=== PATIENT | male | born 1985 | race Caucasian/White ===

== ENCOUNTER 2017-11-21 17:42 | Emergency (ER) | payer OTHER ==
[2017-11-21] MEDS ORDERED: HYDROmorphone 2 MG/ML VIAL IM STA (18:12)
[2017-11-21] MEDS ORDERED: KETOROLAC 60 MG/2 ML VIAL IM STA (18:12)
--- NOTE | 2017-11-21 18:14 | ED Physician Documentation ---
PD HPI BACK INJURY - Stated complaint Stated Complaint: BACK INJURY - History obtained from History obtained from: Patient - History of Present Illness Location: Lower (He was doing lifts at the gym earlier and felt a pull in his right low back and now is pain. There is no fall. No weakness, numbness, tingling, saddle anesthesia, or fever.) Review of Systems Constitutional: reports: Reviewed and negative Cardiac: reports: Reviewed and negative Respiratory: reports: Reviewed and negative PD PAST MEDICAL HISTORY - Past Medical History Past Medical History: No - Past Surgical History Past Surgical History: Yes - Present Medications Home Medications: Ambulatory Orders Medication Instructions Recorded Confirmed Cyclobenzaprine [Flexeril] 10 mg PO TID PRN #20 tablet 11/21/17 HYDROcod/ACETAM 5/325 [[place]acy 5/325] 1 - 2 ea PO Q6H PRN #15 tablet 11/21/17 Ibuprofen [Motrin] 800 mg PO Q8H PRN #30 tablet 11/21/17 - Allergies Allergies/Adverse Reactions: Allergies Allergy/AdvReac Type Severity Reaction Status Date / Time No Known Drug Allergies Allergy Verified 11/21/17 18:06 - Social History Does the pt smoke?: Yes Smoking Status: Heavy tobacco smoker Does the pt drink ETOH?: Yes Does the pt have substance abuse?: No - Immunizations Immunizations are current?: Yes - POLST Patient has POLST: No PD ED PE NORMAL - Vitals Vital signs reviewed: Yes - General General: Alert and oriented X 3, Other (Comfortable at rest, winces with motion) - Abdomen Abdomen: Soft, Non tender - Back Back: No spinal TTP, Other (Tender to the right paralumbar musculature, The patient has equal and normal Achilles and patellar reflexes bilaterally. Normal sensation in all areas of the legs. Patient denies saddle anesthesia. Normal strength in flexion-extension at the ankles, knees, and flexion of the hips.) - Neuro Neuro: Alert and oriented X 3, Normal speech Results - Vitals Vitals: Vital Signs - 24 hr 11/21/17 17:54 Temperature 36.7 C Heart Rate 89 Respiratory 18 Rate Blood Pressure 126/81 H O2 Saturation 100 Oxygen O2 Source Room air Departure - Departure Disposition: 01 Home, Self Care Clinical Impression: Back pain Qualifiers: Back pain location: low back pain Chronicity: acute Back pain laterality: right Sciatica presence: without sciatica Qualified Code(s): M54.5 - Low back pain Condition: Good Record reviewed to determine appropriate education?: Yes Instructions: ED Low Back Pain Injury Prescriptions: Cyclobenzaprine [Flexeril] 10 mg PO TID PRN #20 tablet PRN Reason: Pain HYDROcod/ACETAM 5/325 [Tracy 5/325] 1 - 2 ea PO Q6H PRN #15 tablet PRN Reason: Pain Ibuprofen [Motrin] 800 mg PO Q8H PRN #30 tablet PRN Reason: PAIN &/OR FEVER Comments: Call your doctor to arrange a follow-up appointment, make the next available appointment. In the interim, return anytime if worse or if new symptoms develop. Your blood pressure was elevated today on check into the emergency department. This does not mean that you have hypertension, it is a common phenomenon to come to the emergency department and have elevated blood pressure. I recommend that you see your primary care physician within the week to have it rechecked when you are feeling better. Forms: Activity restrictions
[2017-11-21 18:55] VITALS: BP 124/74
== END 2017-11-21 18:54 | disposition home or self-care (01) ==
LOC: ED 17:42
DX: M54.5 Low back pain (principal); R03.0 Elevated blood-pressure reading, without diagnosis of hypertension; F17.200 Nicotine dependence, unspecified, uncomplicated
CPT/HCPCS: 96372; 99283; J1170

== ENCOUNTER 2019-01-16 12:17 | Emergency (ER) | payer OTHER ==
[2019-01-16 12:27] VITALS: BP 152/102
--- NOTE | 2019-01-16 12:31 | ED Physician Documentation ---
PD HPI UPPER EXT INJURY - Stated complaint Stated Complaint: LT MIDDLR FINGER LAC - Chief complaint Chief Complaint: Laceration - History obtained from History obtained from: Patient - History of Present Illness Location: Left, Finger (middle finger struck against part of his car when a tool gave loose and he struck his finger forcefully.) Type of injury: Blunt / blow (He was using a tool that slipped loose and he struck his finger against a piece of metal on the car he was working on. He had a laceration that bled briefly. He cleansed it well. He is concerned he is hav ing low bit of redness and a feeling of stiffness of it developed today. He is worried about infection.) Timing - onset: Yesterday Timing - details: Abrupt onset Associated symptoms: Swelling, Discolored (some redness). No: Weakness, Numbness Similar symptoms before: Has not had sx before Review of Systems Constitutional: denies: Fever, Chills Neurologic: denies: Focal weakness, Numbness PD PAST MEDICAL HISTORY - Past Medical History Cardiovascular: None Respiratory: None - Past Surgical History Past Surgical History: Yes - Present Medications Home Medications: Ambulatory Orders Medication Instructions Recorded Confirmed Cyclobenzaprine [Flexeril] 10 mg PO TID PRN #20 tablet 11/21/17 Ibuprofen [Motrin] 800 mg PO Q8H PRN #30 tablet 11/21/17 RX: HYDROcod/ACETAM 5/325 [[place] 1 - 2 ea PO Q6H PRN #15 tablet 11/21/17 5/325] RX: Ibuprofen [Ibu] 800 mg PO TID #30 tablet 01/16/19 RX: Mupirocin 1 applic TP TID #15 g 01/16/19 Sulfamethox/Trimeth 800/160 1 each PO BID #14 tablet 01/16/19 [Bactrim Ds 800/160] - Allergies Allergies/Adverse Reactions: Allergies Allergy/AdvReac Type Severity Reaction Status Date / Time No Known Drug Allergies Allergy Verified 01/16/19 12:24 - Social History Does the pt smoke?: Yes Smoking Status: Heavy tobacco smoker Does the pt drink ETOH?: Yes Does the pt have substance abuse?: No - Immunizations Immunizations are current?: Yes - POLST Patient has POLST: No PD ED PE NORMAL - Vitals Vital signs reviewed: Yes - General General: Alert and oriented X 3, No acute distress, Well developed/nourished - Derm Derm: Normal color, Warm and dry - Neuro Neuro: Alert and oriented X 3 Results - Vitals Vitals: Vital Signs - 24 hr 01/16/19 12:20 Temperature 36.5 C Heart Rate 79 Respiratory 15 Rate Blood Pressure 152/102 H O2 Saturation 98 Oxygen O2 Source Room air - Rads (name of study) finger xray Radiology: Prelim report reviewed (no fractures), See rad report PD MEDICAL DECISION MAKING - ED course Complexity details: reviewed results (no fracture), considered differential (He had the injury yesterday and is concerned about stiffening feeling and decreased range of motion today. There is some slight redness. He is concerned about infection. This may be just inflammatory but I would certainly add antibiotics for concordance with his worries.), d/w patient Departure - Departure Disposition: 01 Home, Self Care Clinical Impression: Finger laceration Qualifiers: Encounter type: initial encounter Finger: middle finger Damage to nail status: without damage Foreign body presence: without foreign body Laterality: left Qualified Code(s): S61.213A - Laceration without foreign body of left middle finger without damage to nail, initial encounter Condition: Stable Record reviewed to determine appropriate education?: Yes Instructions: ED Laceration Hand Follow-Up: LAUREN HODGES DO [Primary Care Provider] - Prescriptions: RX: Ibuprofen [Ibu] 800 mg PO TID #30 tablet RX: Mupirocin 1 applic TP TID #15 g Sulfamethox/Trimeth 800/160 [Bactrim Ds 800/160] 1 each PO BID #14 tablet Comments: Cleanse wound with soap and water 2-3 times a day and apply a little bit of mupirocin antibiotic ointment. Do not have it overly wet or overly dry. Use Bactrim antibiotic twice daily for a week to reduce her clear infection. Ibuprofen 3 times a day add Tylenol if needed. Recheck if worsening signs of infection. Discharge Date/Time: 01/16/19 13:27
[2019-01-16] MEDS ORDERED: IBUPROFEN 800 MG TABLET PO STA (12:47)
[2019-01-16] MEDS ORDERED: SULFAMETH/TRIMETH DS 800/160 MG TABLET PO STA (12:48)
[2019-01-16] MEDS ORDERED: ACETAMINOPHEN 325 MG TABLET PO STA (12:48)
--- NOTE | 2019-01-16 14:50 | XRAY Report ---
Reason: left middle finger injury yesterday Procedure Date: 01/16/2019 Accession Number: [id number] / [id number] Procedure: XR - Finger(s) LT CPT Code: FULL RESULT: EXAM: LEFT THIRD DIGIT RADIOGRAPHY EXAM DATE: 01/16/2019 12:50 PM. CLINICAL HISTORY: Left middle finger injury yesterday. Puncture. Soft tissue swelling COMPARISON: None. TECHNIQUE: 4 views. FINDINGS: Bones: Normal. No fracture or bone lesion. Joints: Normal. No subluxations. Soft Tissues: Soft tissue swelling. IMPRESSION: Normal digit radiography. [facility]
== END 2019-01-16 13:27 | disposition home or self-care (01) ==
LOC: ED 12:17
DX: S61.213A Laceration without foreign body of left middle finger without damage to nail, initial encounter (principal); F17.200 Nicotine dependence, unspecified, uncomplicated; W26.8XXA Contact with other sharp object(s), not elsewhere classified, initial encounter; W22.8XXA Striking against or struck by other objects, initial encounter; Y93.89 Activity, other specified
CPT/HCPCS: 73140; 99283; A9270

== ENCOUNTER 2021-03-03 14:46 | Outpatient (CLI) | payer OTHER ==
[2021-03-03 15:35] VITALS: BP 133/81
--- NOTE | 2021-03-03 15:35 | SLEEP CARE CONSULTATION ---
Information from patient questionnaire entered by Idalia Diaz. I have reviewed and concur with the information entered by Idalia Diaz. This document represents the service I personally performed and the decisions made by me, Hafsa Venegas ARNP. History of Present Illness Service Date and Time: 03/03/2021 1446 Reason for Visit: New patient Chief Complaint: reports: Unrefreshed sleep, Snoring, Observed pauses in breathing, Frequent awakenings at night Date of Onset: 10 years Usual bedtime: 8:30 - 9:30 pm Time it takes to fall asleep: 30-45 minutes Snores at night: Yes Observed to quit breathing while asleep: Yes Sleeps alone due to snoring: No (; daughter did leave tent due to snoring when camping) Number of times waking at night: 4-6 Reasons for waking at night: reports: Snoring, Bathroom, Other (unknown reasons). denies: Choking, Gasping for air Toss, Turn, or Twitch while sleeping: Yes Recalls having dreams: No Usually gets out of bed at: 4-6 am Feels refreshed in the morning: No Morning headache: No Sleepy or fatigued during the day: Yes Ever fallen asleep while driving: Yes (drowsy driving but no accidents) Takes day naps: No Dreams during day naps: No Prior sleep studies: No Additional HPI information: I had the pleasure of seeing BOLA LIVINGSTON today regarding the possibility of him having a sleep disorder. His current complaints are frequent night awakenings, observed pauses in breathing, snoring and unrefreshed sleep. He states for a very long time he has been told he snores like he is "sawing logs" and that he stops breathing when sleeping. He has been told that he gasps in his sleep but this has not woken him up. He is always tired throughout the day. He does not wake up feeling rested after 6-7 hours of sleep. He states he has had a lot of friends encouraging him to get a sleep study because of his loud snoring and stopping breathing when he sleeps. One-time he has a friend who is on a Pap machine who let him try it when he was taking a nap and he states it was a good experience. - Parasomnia Symptoms Ever been unable to move upon waking from sleep: No Walks in sleep: No Talks in sleep: Yes Ever acted out dreams in sleep: No Ever felt weak in the knees when startled or emotional: No Bothered by creepy, crawly, restless sensations in legs: No Problems with memory or concentration: Yes (mainly memory issues) Subjective Initial [place] Sleepiness Scale score: 14 (in 2020) Social History The patient's occupation is a Active . Patient is and lives in [place]. Have you smoked in the past 12 months: No Years of smokin (and a half) Quit date: 2006 Alcohol use: Yes Alcohol amount and frequency: 6 pack per week Caffeine use: Yes Caffeine amount and frequency: 2 cups per day Family History Family history of sleep disordered breathing: Yes Family Hx Sleep Apnea: Father: Snoring, Sleep apnea - Untreated, Grandparent: Snoring Allergies and Home Medications Drug allergies reviewed: Yes (NKDA) Home medication list reviewed: Yes Allergy and home medication list: / pill of melatonin 10 mg pill to help with sleep Review of Systems Cardiovascular: denies: high blood pressure Gastrointestinal: reports: heartburn Neurological: denies: headaches Psychiatric: denies: anxiety, depression, mood disorder Ear/Nose/Throat: reports: wisdom teeth removed. denies: sinus problems, dry mouth/throat, injury to nose, tonsillectomy Immunologic: denies: allergies to food or environment Physical Exam Blood Pressure: 133/81 Cuff size: wrist Heart Rate: 82 O2 Saturation: 96 Height: 6 ft Weight: 208 lb Body Mass Index: 28.2 BMI Classification: Overweight Neck circumference: 15 (inches) Nostrils: patent to airflow Mouth and throat: narrow oropharynx Soft palate: long Hard palate: normal Uvula: normal Uvula visualization: 100% Mallampati Class I Tongue: normal in size Tonsils: small Neck: normal w/o lymphadenopathy or thyromegaly Heart: regular rate and rhythm Lungs: clear bilaterally Impression and Plan 1. Suspected Obstructive Sleep Apnea-Hypopnea Syndrome, as suggested by a history of loud and irregular snoring, observed cessation of breath while asleep, gasping or choking in sleep, frequent awakening during the night, unrefreshed sleep and cognitive impairment. Narrow oropharynx and obesity are common predisposing factors for obstructive sleep apnea-hypopnea syndrome. I recommend proceeding to polysomnography to confirm the diagnosis and to assess severity. If the patient has significant sleep disordered breathing, a manual CPAP titration study will also be performed to find the optimal treatment pressure. I informed the patient of what the sleep studies involve and after some discussion, obtained agreement to proceed. The pathophysiology of obstructive sleep apnea-hypopnea syndrome was discussed with the patient and health risks of cardiovascular and cerebrovascular disease if not treated. AAS brochure for obstructive sleep apnea-hypopnea syndrome given and reviewed. Risks of drowsy driving discussed in detail and patient advised to avoid long distance driving and to loop puller at the first sign of drowsiness. Patient agreed to plan. * Schedule polysomnography +- manual CPAP titration study and return in 1-2 weeks after the study to discuss result and initiate therapy. * Avoid long distance driving or driving when feeling sleepy. * Avoid alcohol, sedative and muscle relaxant around bedtime. * Attempt to lose weight. * Review instructions provided by trained office staff on how to prepare for the sleep study. * Return for follow-up after sleep study completed. Counseling Topics: Weight loss health impact Visit Type: In Office Time Spent with Patient (minutes): 30 Provider Statement: I spent 100% of the Face to Face Visit with the patient with greater than 50% spent counseling the patient and coordination of care.
== END 2021-03-03 14:47 | disposition home or self-care (01) ==
LOC: SC 14:46
PROVIDERS: ATTEND Nurse Practitioner Family
DX: R06.83 Snoring (principal); R06.81 Apnea, not elsewhere classified; R41.89 Other symptoms and signs involving cognitive functions and awareness; G47.8 Other sleep disorders
CPT/HCPCS: 99203; 99212

== ENCOUNTER 2021-03-10 14:25 | Outpatient (CLI) | payer OTHER | END 2021-03-10 14:26 | disposition home or self-care (01) | LOC: SC 14:25 | PROVIDERS: ATTEND Nurse Practitioner Family | DX: G47.33 Obstructive sleep apnea (adult) (pediatric) (principal); R09.02 Hypoxemia | CPT/HCPCS: 95806 ==

== ENCOUNTER 2021-03-18 14:44 | Outpatient (CLI) | payer OTHER ==
--- NOTE | 2021-03-18 15:15 | SLEEP CARE CONSULTATION ---
Information from patient questionnaire entered by Betsy Wilkins. I have reviewed and concur with the information entered by Betsy Wilkins. This document represents the service I personally performed and the decisions made by me, Hafsa Venegas ARNP. History of Present Illness Service Date and Time: 03/18/2021 1444 Initial [place] Sleepiness Scale score: 14 (in 2020) Current [place] Sleepiness Scale score: 17 Additional HPI information: BOLA LIVINGSTON returns for follow up and results of the recently performed home sleep study. I explained the pathophysiology behind obstructive sleep apnea. We then spent quite a bit of time discussing different treatment options. For mild obstructive sleep apnea, surgery and oral appliance are alternatives to nasal CPAP therapy but in moderate or severe cases, nasal CPAP is the most effective and reliable treatment. Because apnea is primarily in supine position, then positional management therapy could be effective. Methods discussed such as positioning with pillows, using a T-shirt with tennis balls in the back, and shown commercial products that have a pillow format on back to prevent supine sleep. I reviewed the impact of weight changes on sleep apnea and strongly recommended losing weight. After some discussion, the patient opted to go with the nasal CPAP therapy. Nasal autoCPAP set at 4-15 cmH20 will be ordered with rationale explained. A manual titration study will be ordered if unable to find optimal pressure with office adjustments. I explained how CPAP machine works with sample devices [employer] Dreamstation and [employer] [id number] and what to expect when using the machine. Using CPAP every night in order to get used to it was emphasized. Patient advised to put CPAP mask on before getting into bed so as not to fall asleep without CPAP. To assist acclimation to CPAP use, it could also be used for a short time during day while reading or watching TV. The patient was instructed to call the CPAP supplier to discuss any mechanical problem that may occur. If the mask given is uncomfortable or is difficult to keep on through the night even with adjustment, contact the CPAP supplier as many will replace with another mask style if notified before 30 days. If snoring or perceives is not getting enough air or too much air from the machine, notify this office. [facility] patient education PAP tips reviewed and given to patient. Patient does not drink alcohol. Patient was cautioned about risks of drowsy driving until sleepiness symptoms resolve. Sleep Study - Results Type of Sleep Study: Home sleep study Prior sleep studies: No Polysomnography/Home Sleep Study results: Physician Impression: The quality of the study is good. The length of the study is adequate (> 240 minutes). Please also see the tabulated and graphic data. 1. Obstructive Sleep Apnea-Hypopnea (ICD-10 G47.33), severe, with an AHI of 41.2 /hr and rory SaO2 of 73%. During the study, the patient had 198 apneas (198 obstructive, 0 central, 0 mixed) and 19 hypopneas. The longest episode lasted 101.5 seconds. The respiratory events occurred more frequently during supine sleep (supine AHI was 52.1 and non-supine, 16.65). 2. Hypoxemia (ICD-10 R09.02), moderate, with the lowest oxygen saturation of 73 % and 81.0 minutes with SaO2 under 90%. Baseline oxygen saturation was normal (Average oxygen saturation was 92%). Allergies and Home Medications Home medication list reviewed: Yes (no changes) Review of Systems Review of systems same as previous: Yes (no changes) Physical Exam Heart Rate: 98 O2 Saturation: 97 Height: 6 ft Weight: 219 lb Weight change since last visit: 11 pound gain Body Mass Index: 29.7 BMI Classification: Overweight Impression and Plan 1. Obstructive Sleep Apnea-Hypopnea Syndrome, severe, with lowest oxygen saturation of 73%. Obviously this is the cause of the patients symptoms of unrefreshed sleep, and excessive daytime sleepiness. Positive pressure therapy could benefit his overall health and reduce risks of cardiovascular and cerebrovascular adverse events. As mentioned above, the patient will be started on nasal autoCPAP therapy with pressure set at 4-15 cmH2O. A manual titration study will be completed if unable to find optimal treatment pressure with office adjustments. Compliance guidelines also reviewed. A copy of compliance guidelines will be given for reference at check out. Because the apnea is more severe supine, I instructed to avoid sleeping supine using pillow positioning until able to start CPAP use. Patient did gain 11 pounds since his last visit but he has been working out to build muscle and is pleased with his progress. 2. Hypoxemia, moderate, with the lowest oxygen saturation of 73 % and 81.0 minutes with SaO2 under 90%. His baseline oxygen saturation was normal with an average oxygen saturation of 92%. * Nasal auto CPAP therapy, pressure at 4-15 cm H2O. * Attempt to lose weight. * Avoid alcohol consumption near bedtime. * Avoid supine sleep until using CPAP. * The patient is again cautioned about driving until sleepiness completely resolves. * Return one month after CPAP obtained. I will assess response to therapy and compliance at that time. Counseling Topics: Weight control Visit Type: In Office Time Spent with Patient (minutes): 20 Provider Statement: I spent 100% of the Face to Face Visit with the patient with greater than 50% spent counseling the patient and coordination of care.
== END 2021-03-18 14:45 | disposition home or self-care (01) ==
LOC: SC 14:44
PROVIDERS: ATTEND Nurse Practitioner Family
DX: G47.33 Obstructive sleep apnea (adult) (pediatric) (principal)
CPT/HCPCS: 99212; 99213